=== PATIENT | male | born 1960 ===

== ENCOUNTER 2019-06-13 23:20 | Emergency (ER) | payer OTHER ==
[~2019-06-13] VITALS: Ht 172.7 cm; Wt 127.0 kg
== END 2019-06-14 03:46 | disposition home or self-care (01) ==
LOC: ED 23:20
DX: R51 Headache (principal)

== ENCOUNTER 2019-06-21 18:14 | Emergency (ER) | payer OTHER ==
[~2019-06-21] VITALS: Ht 172.7 cm; Wt 127.0 kg
[2019-06-21] MEDS ORDERED: PREDNISONE10 MG PO (21:26)
== END 2019-06-21 21:39 | disposition home or self-care (01) ==
LOC: ED 18:14
DX: R51 Headache (principal); R11.0 Nausea; H53.149 Visual discomfort, unspecified; K08.89 Other specified disorders of teeth and supporting structures; R68.84 Jaw pain

== ENCOUNTER 2019-07-28 06:31 | Emergency (ER) | payer OTHER ==
[~2019-07-28] VITALS: Ht 172.7 cm; Wt 122.5 kg
[~2019-07-28 06:31] MED LIST: PREDNISONE10 MG PO
[2019-07-28] MEDS ORDERED: Motrin,Rufen800 MG PO (09:38)
== END 2019-07-28 09:43 | disposition home or self-care (01) ==
LOC: ED 06:31
DX: J02.9 Acute pharyngitis, unspecified (principal)

== ENCOUNTER 2019-09-19 13:53 | Emergency (ER) | payer OTHER ==
[~2019-09-19] VITALS: Ht 172.7 cm; Wt 121.6 kg
[~2019-09-19 13:53] MED LIST changes: +Motrin,Rufen800 MG PO
[2019-09-19 15:36] LABS: BASO % 0.5 % (0.0-1.0); EOS # 0.1 10*3/uL (0.0-0.4); HEMATOCRIT 43.1 % (42.0-52.0); LYMPH # 1.6 10*3/uL (1.3-4.4); LYMPH % 28.6 % (27.0-41.0); MEAN CELL VOLUME 92.3 fl (80.0-94.0); MEAN CORPUSCULAR HGB CONC 33.6 g/dl (33.0-37.0); MEAN PLATELET VOLUME 11.5 fl (9.6-12.3); MONO # 0.7 10*3/uL (0.1-1.0); MONO % 12.9 % (3.0-9.0); NEUT # 3.2 10*3/uL (2.3-7.9); NEUT % 56.7 % (47.0-73.0); PLATELET COUNT AUTOMATED 162 10*3/uL (130-400); RED BLOOD COUNT 4.67 10*6/uL (4.50-5.90); RED CELL DISTRI WIDTH 12.9 % (0-14.5); WHITE BLOOD COUNT 5.7 10*3/uL (4.8-10.8)
[2019-09-19 15:49] LABS: ACT PARTIAL THROMBO TIME 29.3 SECONDS (20.0-32.1)
[2019-09-19] MEDS ORDERED: PROTONIX40 M1 IV (15:55)
[2019-09-19] MEDS ORDERED: Carafate1 GM/10 ML PO (15:56)
[2019-09-19 15:59] LABS: ALBUMIN 3.5 gm/dl (3.1-4.5); ALKALINE PHOSPHATASE 92 U/L (45-117); BUN 13 mg/dl (7-24); CHLORIDE 106 mmol/L (98-107); CREATININE 1.03 mg/dL (0.70-1.30); LIPASE 101 U/L (73-393); POTASSIUM 3.5 mmol/L (3.5-5.1); SGOT/AST 12 IU/L (3-35); SGPT/ALT 31 U/L (12-78); SODIUM 141 mmol/L (136-145); TOTAL PROTEIN 7.7 gm/dL (6.4-8.2)
[2019-09-19 16:00] LABS: TROPONIN I < 0.015 ng/ml (<0.045)
== END 2019-09-19 17:27 | disposition home or self-care (01) ==
LOC: ED 13:53
PROVIDERS: Physician Assistant
DX: K21.9 Gastro-esophageal reflux disease without esophagitis (principal); Z79.899 Other long term (current) drug therapy